=== PATIENT | female | born 1970 | race Caucasian/White ===

== ENCOUNTER 2016-12-09 12:18 | Observation (INO) | payer BC ==
--- NOTE | ~2016-12-09 | OP ---
Record Of Operation [facility] [address] [facility] [place]. [address] NAME: CUCO DONALDSON : 70 STATUS : DIS IN PAT#: [id number] AGE: 46 ADM/REG DATE : 12/09/16 MR#: [id number] REPORT SERV DATE: 12/12/16 DICTATED BY: KIT MATTHEWS II DATE: 12/12/16 REPORT STATUS : Draft TRANSCRIBED BY: MODRajiv DATE: 12/12/16 DATE OF PROCEDURE: 12/10/2016 PREOPERATIVE DIAGNOSES: 1. Recurrent disk herniation at L5-S1. 2. Right lower extremity severe radiculopathy. POSTOPERATIVE DIAGNOSES: 1. Recurrent disk herniation at L5-S1. 2. Right lower extremity severe radiculopathy. PROCEDURE: 1. Revision, right L5-S1 microdiskectomy. 2. Use of the microscope and stereotactic spinal imaging. SURGEON: Kit Matthews M.D. FLUIDS: 1800 mL LR. ESTIMATED BLOOD LOSS: 10 mL. DRAINS: None. COMPLICATIONS: None. ANTIBIOTIC: Preoperatively. PREOPERATIVE HISTORY: This is a friendly 46-year-old female, who did extremely well following her L5-S1 microdiskectomy over a year ago. She came in to the office with a severe pain and had to be admitted for pain control. Pain was simply not controlled even with narcotic medications. DESCRIPTION OF PROCEDURE: After informed consent was obtained, the patient was brought to the operating room at her request and general anesthesia achieved. She was placed in prone position. The back was prepped and draped in a sterile fashion. Stereotactic spinal pin was placed into the left iliac crest, and the intraoperative CT scan completed. Stereotactic guidance was used throughout the case. Next, a minimally invasive incision was performed on the right and the minimally invasive 22 mm tubular retractor was placed. The microscope was brought into place, and the previous laminotomy defect identified. The high-speed bur was used to slightly enlarge the laminotomy. The curved curettes were used to detach the scar which overall was minimal. Next, the S1 nerve root was identified. There was some scarring about that nerve root. The dissection was performed, and the nerve root retracted. There was a portion of the disc which was calcified. However, there was an extrusion identified which was now removed. This allowed a significant decompression of the S1 nerve root. Record Of Operation [facility] [address] [place] [address] NAME: CUCO DONALDSON : 70 STATUS : DIS IN PAT#: [id number] AGE: 46 ADM/REG DATE : 12/09/16 MR#: [id number] REPORT SERV DATE: 12/12/16 DICTATED BY: KIT MATTHEWS II DATE: 12/12/16 REPORT STATUS : Draft TRANSCRIBED BY: MODL DATE: 12/12/16 At this point, I was pleased with the decompression. The irrigation was performed and hemostasis achieved and standard closure performed and the patient was extubated and transferred to PACU in stable condition. VANESSA/ROSENDA Kit Matthews II, M.D. / [id number] CC: Benjamin Gonzalez II
--- NOTE | ~2016-12-09 | HP ---
History And Physical [place] [address] [facility] [place]. [address] NAME: CUCO DONALDSON : 70 STATUS : ADM IN PAT#: [id number] AGE: 46 ADM/REG DATE : 12/09/16 MR#: [id number] REPORT SERV DATE: 12/10/16 DICTATED BY: KIT LEWIS II DATE: 12/10/16 REPORT STATUS : Draft TRANSCRIBED BY: ROSENDA DATE: 12/10/16 DATE OF ADMISSION: 12/09/2016 CHIEF COMPLAINT: Severe pain radiating down the right leg. HISTORY OF PRESENT ILLNESS: A very friendly 46-year-old female, well known to me. She did very well following microdiskectomy approximately one year ago. She reports sudden onset recently of pain going down the buttock and leg. She has been in severe pain. She reports the pain is 10/10. She was extremely uncomfortable when I saw her in the office on 12/09/2016. Her imaging did show a recurrent disk herniation. Her pain was not well controlled and the decision was made to admit her for pain control and possible surgery. PAST MEDICAL HISTORY: Allergies to Medrol, history of glasses, and hypertension. She reports that she sees Dr. Mesfin Jones. She has a history also of hysterectomy partial in 2009 and the lap elina in 2010. MEDICATIONS: Include Tenormin, Flexeril, Neurontin, Dewy Rose, Mobic, Aleve. REVIEW OF SYSTEMS: The patient denies any bowel or bladder changes. She does report some numbness and tingling in the lateral aspect of the foot. Neurologically, she has a positive straight leg raise on the right leg followed by also dysesthesias in the S1 distribution. She has 4-/5 peroneal strength. PHYSICAL EXAMINATION: GENERAL: She is awake, alert, oriented. She is in mild to moderate distress because of the pain. CHEST: Reveals no stridor on inspiration or expiration. CARDIOVASCULAR: Regular rate and rhythm when I palpate the radial pulse. ABDOMEN: Soft. BACK: Reveals a small scar on the right L5-S1 region. MRI shows a recurrent disk herniation at L5-S1 with S1 nerve root compression. IMPRESSION AND PLAN: A 46-year-old female with recurrent disk herniation at L5-S1 with S1 radiculopathy. She is fairly miserable. I know her fairly well and she has not been a difficult patient at all. She has been very compliant overall. I believe that she is in severe legitimate pain. We will admit her for pain control and IV steroid and possible surgery if she does not improve greatly overnight. VANESSA/ROSENDA Kit Lewis II, M.D. History And Physical [address] [place] [address] NAME: CUCO DONALDSON : 70 STATUS : ADM IN PAT#: [id number] AGE: 46 ADM/REG DATE : 12/09/16 MR#: [id number] REPORT SERV DATE: 12/10/16 DICTATED BY: KIT LEWIS II DATE: 12/10/16 REPORT STATUS : Draft TRANSCRIBED BY: ROSENDA DATE: 12/10/16 / [id number] CC: Kit Lewis II, M.D.
[~2016-12-09 12:18] MED LIST: ATEN50 PO
[2016-12-09 12:54] LABS: HEMATOCRIT 39.2 % (36.0-48.0); HEMOGLOBIN 13.1 g/dL (12.0-16.0); MEAN CORPUS HGB CONC 33.4 g/dL (32.0-36.0); MEAN CORPUSCULAR HEMOGLOB 29.5 pg (26.0-34.0); MEAN CORPUSCULAR VOLUME 88.3 fL (80-100); MEAN PLATELET VOLUME 10.9 fL (9.2-13.0); PLATELET COUNT 251 10/3/uL (150-400); RBC DISTRIBUTION WIDTH 12.3 % (12.0-16.0); RED CELL COUNT 4.44 10/6/uL (4.0-5.6); WHITE BLOOD CELLS 13.4 10/3/uL (4.5-10.5)
[2016-12-09 12:55] LABS: MANUAL DIFF YES %
[2016-12-09 13:11] LABS: A/G RATIO 1.1 (0.7-1.9); ALBUMIN 4.1 G/DL (3.5-5.0); ALKALINE PHOSPHATASE 85 U/L (45-117); BUN (BLOOD UREA NITROGEN) 15 MG/DL (6-23); CALCIUM, SERUM 9.3 MG/DL (8.5-10.4); CHLORIDE, SERUM 105 MMOL/L (96-112); CO2 (CARBON DIOXIDE) 26 MMOL/L (24-34); CREATININE 0.84 MG/DL (0.55-1.02); GFR AFRICAN AMERICAN 97 ML/MIN (>=60); GFR NON AFRICAN AMERICAN 83 ML/MIN (>=60); GLOBULIN 3.9 G/DL (2.5-4.1); GLUCOSE, SERUM 85 MG/DL (60-99); POTASSIUM, SERUM 4.1 MMOL/L (3.5-5.3); SGOT(AST) 29 U/L (5-40); SGPT(ALT) 37 U/L (5-65); SODIUM, SERUM 140 MMOL/L (135-148); TOTAL BILIRUBIN 0.3 MG/DL (0-1.2)
[2016-12-09] MEDS ORDERED: NEUR300 PO (13:18)
[2016-12-09] MEDS ORDERED: FLEX PO (13:18)
[2016-12-09] MEDS ORDERED: NORCO1 TA1 PO (13:18)
[2016-12-09] MEDS ORDERED: ATEN100 PO (13:18)
[2016-12-09] MEDS ORDERED: MOBIC15 MG PO (13:19)
[2016-12-09] MEDS ORDERED: ALEVE220 MG PO (13:19)
[2016-12-09 13:50] LABS: BAND NEUTROPHILS 1 %; LYMPHOCYTES 44 %; MONOCYTES 6 %; PLATELET ESTIMATE ADQ (ADEQUATE); RBC MORPHOLOGY NORM (NORMAL); SEGMENTED NEUTROPHIL (0) 49 %; TOTAL NUCLEATED CELLS 100
[2016-12-11] MEDS ORDERED: V2 PO (07:44)
[2016-12-11] MEDS ORDERED: PERCOCET 10/3251 TAB PO (07:44)
[2016-12-11] MEDS ORDERED: MSCONT15 PO (07:44)
[2016-12-11 15:48] LABS: ASCORBIC ACID (UR NOT ORDER) NEG (NEG); BILIRUBIN, URINE NEGATIVE (NEG); KETONE, URINE NEGATIVE (NEG); LEUKOCYTE ESTERASE(NOT OR NEG (NEG); WBC (NOT ORDERED) (RFLEX) < 1 (0-5)
== END 2016-12-11 17:43 | disposition home or self-care (01) ==
LOC: 3SO 12:18
PROVIDERS: Orthopaedic Surgery
PROC: 01NB0ZZ Release Lumbar Nerve, Open Approach (ICD-10-PCS; 2016-12-10)
PROC: 0SB20ZZ Excision of Lumbar Vertebral Disc, Open Approach (ICD-10-PCS; principal; 2016-12-10 11:45)
DX: M51.17 Intervertebral disc disorders with radiculopathy, lumbosacral region (principal); I10 Essential (primary) hypertension; Z90.711 Acquired absence of uterus with remaining cervical stump; Z90.49 Acquired absence of other specified parts of digestive tract; Z79.899 Other long term (current) drug therapy
CPT/HCPCS: 80053; 81001; 85025; 88304; 88311; 96365; 96366; 96375; 96376; A9270-GY; G0378; G0379; J0690; J1030; J1170; J1885; J2250; J2405; J2550; J2710; J3010